=== PATIENT | male | born 1975 | race Caucasian/White ===

== ENCOUNTER 2022-03-19 06:01 | Emergency (ER) | payer SELFPAY ==
[2022-03-19 06:36] LABS: HEMOGLOBIN 15.3 gm/dl (14.0-17.5); RED BLOOD COUNT 4.65 M/UL (4.20-5.50); WHITE BLOOD COUNT 11.9 K/UL (4.5-11.0)
[2022-03-19 07:17] LABS: BUN/CREATININE RATIO 20 (0-10)
== END 2022-03-19 09:30 | disposition home or self-care (01) ==
LOC: ER1 06:01
PROVIDERS: Emergency Medicine
DX: U07.1 COVID-19 (principal); F17.200 Nicotine dependence, unspecified, uncomplicated; R61 Generalized hyperhidrosis
CPT/HCPCS: 0240U; 71045; 80053; 81001; 83605; 83735; 84100; 85025; 87040; 87086; 93005; 96374; 96375; 99284; J1885; J2405